=== PATIENT | male | born 1950 | race Caucasian/White ===

== ENCOUNTER 2023-12-19 10:37 | Outpatient (REF) | payer MEDICARE, SELFPAY ==
--- NOTE | ~2023-12-19 | XR_ITS ---
EXAMINATION: XR SHOULDER, RIGHT CLINICAL INFORMATION: Pain in unspecified shoulder. COMPARISON: None available. TECHNIQUE: Three views of the right shoulder. FINDINGS: Moderate degenerative changes in the acromioclavicular joint with joint space narrowing and hypertrophic change. Glenohumeral alignment preserved. Mild degenerative changes along the glenohumeral joint. Moderate subacromial spur formation. 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
== END 2023-12-19 10:38 | disposition home or self-care (01) ==
LOC: HO.HOSX 10:37
PROVIDERS: PCP Family Medicine; Visit Provider Orthopaedic Surgery
DX: S46.111A Strain of muscle, fascia and tendon of long head of biceps, right arm, initial encounter (principal)
CPT/HCPCS: 73030

== ENCOUNTER 2023-12-19 10:37 | Outpatient (AMB) | payer SELFPAY ==
--- NOTE | 2023-12-19 11:05 | MHC.OFFVIS ---
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 Can reports that he was reaching over head when he felt a stabbing pain in the bicep and noticed a deformity in the bicep area.Denies numbness and tingling. 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 The felt sharp pain which slowly improved. Now he has no pain but notices a deformity of his right biceps. [facility] Social History (Updated 12/19/23 @ 11:07 by Rose Vázquez [facility]) Current occupational status: employed Current occupation: [employer] Helper Physical Exam Vital Signs: BMI result Body Mass Index 25.8 Const General: cooperative, healthy appearing, no acute distress and well groomed Orientation/consciousness: oriented to person and oriented to place HEENT Head: Yes normal to inspection, Yes normocephalic and Yes atraumatic Eyes General: appearance normal, both eyes and all related structures Alignment and Position: alignment normal Conjunctivae: conjunctivae normal EOM: EOMs intact bilaterally Neck Neck: Yes normal visual inspection and Yes trachea midline Resp Other: No rerpiratory distress Effort & Inspection: normal respiratory effort and able to speak in complete sentences GI Other: No abdominal distension Back/Spine/Pelvis Cervical Spine: normal cervical lordosis and cervical ROM normal Skin General skin exam: no rashes or lesions noted Neuro General: oriented to person, oriented to place and gait normal Extrem Other: Pop by deformity right arm No tenderness to palpation Full range of motion arm and elbow Results Reviewed Results Reviewed: I personally reviewed relevant radiographs. Normal radiograph right shoulder Assessment & Plan Assessment & Plan (1) Biceps rupture, proximal: Code(s): S46.119A - Strain of muscle, fascia and tendon of long head of biceps, unspecified arm, initial encounter Category: Medical Plan: This is a 73-year-old gentleman with a rotten rupture of his proximal biceps on the right. I reviewed the path or anatomy with him and the prognosis. No intervention warranted at this time. She can return to see me if needed. Orders: Orders XR shoulder RT min 2V Today M25.519 - Pain in unspecified shoulder Coding Level of Care Code New Pt Level 4 (15996) Diagnoses Biceps rupture, proximal S46.119A
[2023-12-19 11:07] VITALS: BMI 25.8
== END 2023-12-19 11:14 | disposition home or self-care (01) ==
PROVIDERS: PCP Family Medicine; Visit Provider Orthopaedic Surgery
DX: S46.111A Strain of muscle, fascia and tendon of long head of biceps, right arm, initial encounter (principal)
CPT/HCPCS: 99203